=== PATIENT | male | born 1985 | race Caucasian/White ===

== ENCOUNTER 2017-11-19 18:31 | Emergency (ER) | payer OTHER ==
[2017-11-19 18:39] VITALS: BP 117/79; PULSE 62; RESP 18; TEMP 97.9; O2SAT 100
[2017-11-19] MEDS ORDERED: PROPARACAINE/FLUORESCEIN SOD 100 DROP/5 ML BOTTLE OD STA (19:45)
[2017-11-19] MEDS ORDERED: PROPARACAINE/FLUORESCEIN SOD 100 DROP/5 ML BOTTLE ONE (19:54)
--- NOTE | 2017-11-19 19:54 | ED PDOC ---
HPI: Eye Injury/Pain Time Seen by Provider: 11/19/17 18:46 Chief Complaint (Nursing): Eye Problem Chief Complaint (Provider): Eye Problem History Per: Patient History/Exam Limitations: no limitations Onset/Duration Of Symptoms: Hrs Current Symptoms Are (Timing): Still Present Injury To Eye?: No Wears Contact Lens?: Yes Additional Complaint(s): 32 y/o male presents to the ED with right eye irritation. Patient states he accidentally put contact solution in his eye when he had mistaken it for saline solution. He read on the bottle that there is hydrogen peroxide inside the contact solution that could cause eye injury which concerned him. Patient complains of redness and irritation to the right eye. He has no other medical complaints. Denies fever, crusting, discharge, changes in vision, or foreign body sensation. Of note, patient wears glasses and contact lenses. PMD: none provided Past Medical History Reviewed: Historical Data, Nursing Documentation, Vital Signs Vital Signs: Last Vital Signs Temp 97.9 F 11/19/17 18:36 Pulse 62 11/19/17 18:36 Resp 18 11/19/17 18:36 BP 117/79 11/19/17 18:36 Pulse Ox 100 11/19/17 18:36 - Medical History PMH: No Chronic Diseases - Surgical History Surgical History: No Surg Hx - Family History Family History: States: No Known Family Hx - Social History Current smoker - smoking cessation education provided: Yes Ex-Smoker (has not smoked in the last 12 months): No Alcohol: Social Drugs: Denies - Allergies Allergies/Adverse Reactions: Allergies Allergy/AdvReac Type Severity Reaction Status Date / Time No Known Allergies Allergy Verified 11/19/17 18:36 Review of Systems ROS Statement: Except As Marked, All Systems Reviewed And Found Negative Constitutional: Negative for: Fever Eyes: Positive for: Redness (and irritation to right eye). Negative for: Vision Change, Other (crusting, discharge, or foreign body sensation) Physical Exam - Reviewed Nursing Documentation Reviewed: Yes Vital Signs Reviewed: Yes - Physical Exam Comments: GENERAL APPEARANCE: Patient is awake, alert, oriented x 3, in no acute distress. HEENT: (-) facial swelling and erythema, (-) facial blisters. LIDS & LASHES: Normal. PUPILS: normal EOM's: Intact. LID EVERSION: (-) foreign body. CONJUNCTIVAE: (+) injection. CORNEA: (-) infiltrate. ANTERIOR CHAMBER: (-) foreign body, (-) tear in iris, (-) hyphema. FUNDUSCOPIC: (-) foreign body, (-) hemorrhage. - ECG O2 Sat by Pulse Oximetry: 100 (RA) Pulse Ox Interpretation: Normal Medical Decision Making Medical Decision Making: Time: 18:36 Impression: Eye irritation Plan: * Flucaine Eye Drops Scribe Attestation: Documented by Margie Stinson acting as a scribe Nicole Tierney PA-C. MD Scribe Attestation: All medical record entries made by the Scribe were at my direction and personally dictated by me. I have reviewed the chart and agree that the record accurately reflects my personal performance of the history, physical exam, medical decision making, and the department course for this patient. I have also personally directed, reviewed, and agree with the discharge instructions and disposition. Disposition - Disposition
== END 2017-11-19 20:19 | disposition home or self-care (01) ==
LOC: H.ER 18:31
DX: H57.8 Other specified disorders of eye and adnexa (principal); F17.200 Nicotine dependence, unspecified, uncomplicated